=== PATIENT | female | born 1985 | race Caucasian/White ===

== ENCOUNTER → 2019-06-03 16:40 | Outpatient (CLI) | payer OTHER, SELFPAY | PROVIDERS: Visit Provider Specialist | DX: Z34.03 Encounter for supervision of normal first pregnancy, third trimester (principal) | CPT/HCPCS: 87086 ==

== ENCOUNTER → 2019-07-08 08:57 | Outpatient (CLI) | payer OTHER, SELFPAY ==
[2019-07-09 14:48] LABS: Strep Grp B PCR NEG for Grp B Strep
== END ==
PROVIDERS: Visit Provider Specialist
DX: Z34.03 Encounter for supervision of normal first pregnancy, third trimester (principal)
CPT/HCPCS: 87653

== ENCOUNTER 2019-08-05 09:29 | Outpatient (CLI) | payer OTHER, SELFPAY ==
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
== END 2019-08-05 10:35 | disposition home or self-care (01) ==
LOC: LABOR 10:02 → OB 08-06 14:43
PROVIDERS: Referring Provider Specialist; Visit Provider Specialist
DX: O48.0 Post-term pregnancy (principal); O24.410 Gestational diabetes mellitus in pregnancy, diet controlled; Z3A.40 40 weeks gestation of pregnancy
CPT/HCPCS: 59025; G0378; G0379

== ENCOUNTER 2019-08-08 09:20 | Outpatient (CLI) | payer OTHER, SELFPAY ==
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
== END 2019-08-08 10:25 | disposition home or self-care (01) ==
LOC: OB 08-10 14:05
PROVIDERS: Referring Provider Specialist; Visit Provider Specialist
DX: O24.419 Gestational diabetes mellitus in pregnancy, unspecified control (principal); O48.0 Post-term pregnancy; Z3A.40 40 weeks gestation of pregnancy
CPT/HCPCS: 59025; G0378; G0379

== ENCOUNTER → 2019-08-10 16:23 | Outpatient (CLI) | payer OTHER, SELFPAY ==
[2019-08-11 08:51] LABS: COVID19 Sendout Not Detected (Not Detect)
== END ==
PROVIDERS: Visit Provider Physician Assistant
DX: Z11.59 Encounter for screening for other viral diseases (principal)
CPT/HCPCS: 87635

== ENCOUNTER 2019-08-11 18:49 | Inpatient (IN) | payer OTHER, SELFPAY ==
[2019-08-11] MEDS: miSOPROStoL 25 MCG TABLET VAG (19:55)
[2019-08-11 21:51] LABS: Add Manual Diff / Slide Review NO; Basophils Absolute Auto 100 /uL (0-100); Basophils Percent Auto 1.1 % (0-2); Eosinophils Absolute Auto 100 /uL (0-450); Eosinophils Percent Auto 0.7 % (2-4); Hematocrit 34.7 % (36-46); Lymphocytes Absolute Auto 2600 /uL (1100-4500); Lymphocytes Percent Auto 19.2 % (25-40); Mean Corpuscular HGB Conc 34.6 % (30-36); Mean Corpuscular Hemoglobin 31.3 PG (26-34); Mean Corpuscular Volume 90.5 fL (80-100); Monocytes Absolute Auto 800 /uL (0-900); Monocytes Percent Auto 6.3 % (3-14); Neutrophils Absolute Auto 9700 /uL (1500-7000); Neutrophils Percent Auto 72.7 % (50-75); Platelet Count 158 X10^3/uL (150-400); Red Blood Cell Count 3.84 X10^6/uL (4.0-5.2); Red Cell Distribution Width 12.9 % (11.6-14.8); White Blood Cell Count 13.4 X10^3/uL (4.5-11.0)
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
[2019-08-12] MEDS: LACTATED RINGERS 1,000 ML 100 ML IV ×3 (13:26→19:45)
[2019-08-12] MEDS: FENT 2MCG/ML BUPIV 0.125% EPI 200 MCG/100 ML PLAST..BAG 10 MCG EPIDURAL (14:00)
[2019-08-12] MEDS: OXYTOCIN PREMIX 30 UNIT/500 ML PLAST..BAG IV (14:38)
--- NOTE | 2019-08-12 16:44 | PM.PREOP ---
Pre-operative Note COVID-19 COVID-19 status: Negative Result date/Date tested (Pos, Neg/Pending): 08/10/19 Interval Note History & Physical reviewed/Exam performed by Physician: Yes Changes to H&P: Yes H&P completed within 30 days and has changed as indicated here:: 1st stage arrest
[2019-08-12] MEDS: CEFAZOLIN 2 GM/100 ML FROZ.PIGGY IV (17:20)
--- NOTE | 2019-08-12 17:50 | SUR.OPER ---
Supine on Padded OR bed, head on pillow, safety belt at thigh, arms secured on padded arm boards at <90 degrees abduction. Bump under right buttock. Legs uncrossed with pillow under knees, gel pad to heels, tape over blanket to lower legs.
[2019-08-12 18:03] VITALS: BP 104/38; PULSE 88; RESP 13; TEMP 37; O2SAT 97
--- NOTE | 2019-08-12 18:06 | P.OP_ITS ---
Operative Date/Time/Diagnoses Date of procedure: 08/12/19 Time of procedure: 18:06 Pre-op diagnosis: first stage arrest Post-op diagnosis: same Procedure & Clinicians Procedure: Primary low-transverse section Same procedure as scheduled: Yes Indications: 1st stage arrest Surgeon: Cami Lombardo Click Yes if Unassisted: Yes Anesthesia Type: Epidural Operative Notes Findings: Normal tubes, ovaries, and uterus. Viable female with double nuchal cord, 7 lb 6 oz, Apgars of 8 and 9 Closure Type: primary Specimen(s): none sent Applied: catheter (Kim) Estimated Blood Loss (mL): 450 Blood products transfused: none Procedure in detail: The patient was brought to the operating room where she underwent a bolus in her epidural for anesthesia. She was placed in a supine position with a left lateral tilt. A Kim catheter was in place. Pulsatile stockings were placed and functional throughout the case. 2 g of Ancef were given IV prior to the incision. Warming was in place. The patient was prepped and draped in usual sterile fashion. A low transverse incision was made with a scalpel and the incision was carried down to the fascial layer which was incised transversely with scissors. The midline attachments are superiorly and inferiorly. Some bleeding was controlled Bovie. The rectus muscles were in the midline and the peritoneal incision was made with no damage to internal s tructures. The peritoneum was incised and superiorly and inferiorly. Bladder blade was placed and a bladder flap was developed and the bladder held away from the lower uterine segment. An incision was made in the uterus with the scalpel and the incision was extended with stretching. The head was elevated out of the abdomen and with fundal pressure the baby was delivered. The infant was bulb s uctioned for clear fluid and handed off to the warmer. Cord blood was collected. The placenta delivered spontaneously with traction. The uterus was cleaned with clean laps. The uterine incision was closed in 2 layers of 0 chromic suture the first a running locking layer the second an imbricating layer. The bladder peritoneum was repaired with 2-0 Vicryl suture. The gutters were cleaned of any remaining fluids and ovaries and tubes were observed to be normal. Adequate hemostasis was noted. The perineum was closed with 2-0 Vicryl suture. The fascia layer was closed with 0 Vicryl suture with 2 stitches. The incision was irrigated and adequate hemostasis noted. The incision was closed with interrupted 3-0 Vicryl sutures and then a subcuticular stitch of 4-0 Vicryl suture. Steri-Strips were placed. The uterus was massaged to remove any clots. The patient went to recovery room in good condition. Counts of instruments and sponges were correct. Complications: none Post-operative Condition: stable Disposition: other ( Center) Plan for aftercare: Routine post section
[2019-08-12 18:08] VITALS: BP 93/46; PULSE 88; RESP 13; O2SAT 97
[2019-08-12 18:13] VITALS: BP 95/48; PULSE 85; RESP 13; O2SAT 97
[2019-08-12 18:23] VITALS: BP 94/49; PULSE 84; RESP 13; TEMP 37.1; O2SAT 97
--- NOTE | 2019-08-12 18:27 | SUR.PHASEI ---
Has sensation at xyphoid process. Denies pain/nausea. Small amount of red drainage on pad.
--- NOTE | 2019-08-12 18:28 | SUR.OPER ---
FHT 134 LIVE FEMALE BORN AT 1530
[2019-08-12] MEDS: ONDANSETRON 4 MG/2 ML INJ IV (19:45)
[2019-08-12] MEDS: METOCLOPRAMIDE 10 MG/2 ML INJ IV (21:06)
[2019-08-12] MEDS: KETOROLAC 30 MG/ML VIAL IV (22:33)
[2019-08-13] MEDS: KETOROLAC 30 MG/ML VIAL IV ×2 (04:41→09:45)
[2019-08-13 08:11] LABS: Add Manual Diff / Slide Review NO; Basophils Absolute Auto 0 /uL (0-100); Basophils Percent Auto 0.1 % (0-2); Eosinophils Absolute Auto 0 /uL (0-450); Hematocrit 30.1 % (36-46); Hemoglobin 10.3 g/dL (12.0-16.0); Lymphocytes Absolute Auto 2000 /uL (1100-4500); Lymphocytes Percent Auto 11.4 % (25-40); Mean Corpuscular HGB Conc 34.2 % (30-36); Mean Corpuscular Hemoglobin 31.6 PG (26-34); Mean Corpuscular Volume 92.3 fL (80-100); Monocytes Absolute Auto 1100 /uL (0-900); Monocytes Percent Auto 6.2 % (3-14); Neutrophils Absolute Auto 14700 /uL (1500-7000); Neutrophils Percent Auto 82.3 % (50-75); Platelet Count 120 X10^3/uL (150-400); Red Blood Cell Count 3.27 X10^6/uL (4.0-5.2); Red Cell Distribution Width 12.9 % (11.6-14.8); White Blood Cell Count 17.9 X10^3/uL (4.5-11.0)
--- NOTE | 2019-08-13 08:22 | PM.OBPN.1 ---
Subjective - OB Subjective Patient comments: no complaints (Patient had dizziness and nausea after her surgery but it is resolving now) baby status: nursing well [place] feeding status: exclusively breast feeding Date Patient Seen: 08/13/19 Time Patient Seen: 08:22 Interval history: Patient initially had nausea vomiting, dizziness after her surgery but is feeling better now. Breast-feeding is going well. She is ready to try ambulation after breakfast. Exam Vital Signs (past 8 hours): Blood pressure 110/68, pulse 72, temperature 97.6? Oxygen Delivery Method Room Air Narrative Exam Narrative: Patient's abdomen is soft, nontender. Uterus is firm, at U, appropriately tender. Dressing is clean, dry, intact. Mild lochia. Extremities without edema and nontender. Objective Labs Result Diagrams: 08/13/19 06:41 Labs: Laboratory Results - last 24 hr 08/13/19 06:41 WBC 17.9 H RBC 3.27 L Hgb 10.3 L Hct 30.1 L MCV 92.3 MCH 31.6 MCHC 34.2 RDW 12.9 Plt Count 120 L Neut % (Auto) 82.3 H Lymph % (Auto) 11.4 L [place] % (Auto) 6.2 Eos % (Auto) 0.0 L Baso % (Auto) 0.1 Neut # (Auto) 19442 H Lymph # (Auto) 2000 [place] # (Auto) 1100 H Eos # (Auto) 0 Baso # (Auto) 0 Assessment & Plan Assessment and Plan (1) Delivery by section of full-term infant: Status: Acute Plan day: 1 plan OB: routine postop care Comments: Patient will be up and ambulating today. Remove Kim if tolerating ambulation. Time Spent With Patient Time: Total time spent is greater than 50% in coordination of care (as documented) at patient's floor/unit and/or counseling patient: Time with patient: less than 15 minutes
[2019-08-13] MEDS: DOCUSATE 250 MG CAPSULE PO (09:30)
[2019-08-13] MEDS: FERROUS GLUCONATE 324 MG TABLET PO ×2 (09:30→09:32)
[2019-08-13] MEDS: ACETAMINOPHEN 325 MG TABLET 650 MG PO ×2 (13:57→20:05)
[2019-08-13] MEDS: IBUPROFEN 600 MG TABLET PO ×2 (15:44→22:05)
[2019-08-14] MEDS: ACETAMINOPHEN 325 MG TABLET 650 MG PO ×2 (02:12→08:48)
[2019-08-14] MEDS: IBUPROFEN 600 MG TABLET PO (03:57)
[2019-08-14] MEDS: FERROUS GLUCONATE 324 MG TABLET PO (08:47)
[2019-08-14] MEDS: DOCUSATE 250 MG CAPSULE PO (08:48)
--- NOTE | 2019-08-14 09:48 | PM.OBDS.1 ---
Discharge Providers Provider Date of admission: 08/11/19 18:49 Discharge Date: 08/14/19 Consults: 08/11/19 18:51 Consult to Anesthesiology Urgent Comment: Consulting Provider: Anesthesiologist Reason for consultation: Epidural Has provider been notified: No 08/12/19 18:43 Consult to [place] Routine Comment: Discharge provider: Cami Lombardo MD Summary Hospital Course Date Patient Seen: 08/14/19 Time Patient Seen: 09:48 Procedures: Prostin followed by Pitocin induction, epidural catheter, primary low-transverse section Hospital Course: Patient arrived on Labor and delivery for Prostin followed by Pitocin induction for 41 week gestation with diet-controlled gestational diabetes. Patient received an epidural catheter for pain control. She had a 1st stage arrest in underwent a primary low-transverse section. Patient denies headaches, scotomata, epigastric pain. She is urinating and ambulating well. She is passing gas. She is only taking Motrin and Tylenol for pain. She is breast-feeding without difficulty Peripartum Data Delivery Method: Section (For 1st stage arrest) Procedures: Prostin followed by Pitocin induction, epidural catheter, primary low-transverse section complications: none [place] 1: Gender: Female Disposition of : home Discharge Diagnosis (1) Delivery by section of full-term infant: Status: Acute (2) Gestational diabetes: Status: Acute (3) Post-dates : Status: Acute Status at Discharge Cognitive/behavioral status at discharge: oriented Functional status at discharge: independent ambulation Overall status at discharge: patient is progressing back to baseline Time Spent with Patient Time attestation: Total time spent providing and/or coordinating discharge services: Time spent: Less than 30 minutes Objective Labs Result Diagrams: 08/13/19 06:41 Exam Vital Signs (past 8 hours): Blood pressure 101/71, pulse of 58, temperature 98.3? Oxygen Delivery Method Room Air Narrative Exam Narrative: Abdomen is soft, nontender. Uterus is firm, at U with appropriate tenderness. The dressing is clean, dry, intact. Mild lochia. Extremities without edema and nontender. Blood type A positive, rubella immune, she received Tdap in 3rd trimester Discharge Plan Discharge Plan Patient Disposition: Home Discharge orders & Medications Prescriptions: Continued prenat.vits,markie,zed-srxl-dpaej Tablet 1 tab PO DAILY RF: 0 No Action (DME) Double Electric breast Pump and Supplies See Rx Instructions .ROUTE .MEDSUPPLY Qty: 1 RF: 0 Follow up/Referrals: Cami Lombardo MD [Physician] - 1 Week (Aquacel removal) Diet/Activity/Treatments Diet: Regular Activity: Nothing in vagina and no lifting over 20 lb for 6 weeks Skin/Wound/Dressing Care Report to your healthcare provider any signs of infection, such as:: chills, fever, increased pain and unusual redness Dressing: Leave dressing on for one-week
== END 2019-08-14 11:20 | disposition home or self-care (01) | DRG 788 ==
PROVIDERS: Admitting Provider Specialist; Referring Provider Specialist; Visit Provider Specialist
PROC: 10D00Z1 Extraction of Products of Conception, Low, Open Approach (ICD-10-PCS; CPT 59514; principal; 2019-08-12 17:00)
DX: O48.0 Post-term pregnancy (principal); O24.420 Gestational diabetes mellitus in childbirth, diet controlled; O62.1 Secondary uterine inertia; Z3A.41 41 weeks gestation of pregnancy; Z37.0 Single live birth; O69.81X0 Labor and delivery complicated by cord around neck, without compression, not applicable or unspecified
CPT/HCPCS: 01967; 01968; 36415; 59050; 59515; 85025; 86850; 86900; 86901; G0379; J0690; J1885; J2274; J2405; J2590; J2765; J3010

== ENCOUNTER → 2020-12-19 12:23 | Outpatient (CLI) | payer OTHER, SELFPAY ==
[2020-12-19 13:36] LABS: Add Manual Diff / Slide Review NO; Basophils Absolute Auto 0 /uL (0-100); Basophils Percent Auto 0.6 % (0-2); Eosinophils Absolute Auto 100 /uL (0-450); Hematocrit 36.6 % (36-46); Hemoglobin 12.3 g/dL (12.0-16.0); Lymphocytes Absolute Auto 2400 /uL (1100-4500); Lymphocytes Percent Auto 32.7 % (25-40); Mean Corpuscular HGB Conc 33.6 % (30-36); Mean Corpuscular Hemoglobin 30.3 PG (26-34); Mean Corpuscular Volume 90.1 fL (80-100); Monocytes Absolute Auto 500 /uL (0-900); Monocytes Percent Auto 6.8 % (3-14); Neutrophils Absolute Auto 4300 /uL (1500-7000); Neutrophils Percent Auto 58.9 % (50-75); Platelet Count 270 X10^3/uL (150-400); Red Blood Cell Count 4.07 X10^6/uL (4.0-5.2); Red Cell Distribution Width 12.7 % (11.6-14.8); White Blood Cell Count 7.2 X10^3/uL (4.5-11.0)
[2020-12-19 13:52] LABS: Hemoglobin A1C% w Est Avg Glu 5.1 % (4.0-6.0)
[2020-12-19 14:14] LABS: Prolactin 16.4 ng/mL (3.0-18.6)
[2020-12-19 14:36] LABS: Alanine Aminotransferase 12 IU/L (<35); Albumin 4.6 g/dL (3.5-5.0); Albumin Globulin Ratio 1.6 (1.0-2.8); Alkaline Phosphatase 72 U/L (38-126); Aspartate Aminotransferase 22 IU/L (14-36); BUN Creatinine Ratio 15.4 (6-22); Bilirubin Total 0.3 mg/dL (0.2-1.3); Blood Urea Nitrogen 10 mg/dL (7-17); Calcium 9.5 mg/dL (8.4-10.2); Carbon Dioxide 28 mmol/L (22-32); Chloride 103 mmol/L (98-107); Estimated Glomerular Filt Rate > 60.0 mL/min (>60); Globulin 2.9 g/dL (1.7-4.1); Glucose 76 mg/dL (70-100); HEMOLYSIS < 15 (0-50); Potassium 4.1 mmol/L (3.4-5.1); Sodium 140 mmol/L (137-145); Total Protein 7.5 g/dL (6.3-8.2)
[2020-12-24 15:11] LABS: Percent Free Testosterone 1.81 % (0.50-2.80); Testosterone Free 0.48 ng/dL (0.10-0.85); Testosterone Total 26.5 ng/dL (10.0-55.0)
== END ==
PROVIDERS: Family Medicine; PCP Family Medicine; Referring Provider Family Medicine; Visit Provider Family Medicine
DX: O24.419 Gestational diabetes mellitus in pregnancy, unspecified control (principal); O92.70 Unspecified disorders of lactation; R42 Dizziness and giddiness; L70.9 Acne, unspecified
CPT/HCPCS: 36415; 80053; 83036; 84146; 84402; 84403; 84443; 85025

== ENCOUNTER → 2022-08-02 13:59 | Outpatient (CLI) | payer OTHER, SELFPAY ==
[2022-08-03 08:44] LABS: Complement C3 113 mg/dL (82-167)
[2022-08-05 20:30] LABS: Complement Total CH50 57 U/mL (>41)
== END ==
PROVIDERS: PCP Family Medicine; Referring Provider Family Medicine; Visit Provider Family Medicine
DX: R68.89 Other general symptoms and signs (principal)
CPT/HCPCS: 36415; 86160; 86162

== ENCOUNTER → 2022-09-05 11:03 | Outpatient (CLI) | payer OTHER, SELFPAY ==
--- NOTE | 2022-09-05 11:05 | DI.US.S_ITS ---
PROCEDURE: US OB <= 14 WEEKS FETUS INDICATIONS: Dating and viability OUTSIDE/PRIOR DATING DATA: Last menstrual period (LMP): 06/06/2022. LMP-based estimated date of delivery (TAJ): 03/13/2023. First dating scan (date and location): 09/05/2022 at . Estimated date of delivery (TAJ) from first dating scan: 03/08/2023. TECHNIQUE: Real-time scanning was performed of the fetus, with image documentation and biometric measurements. COMPARISON: None. FINDINGS: General: A single living intrauterine gestation is present. Presentation: Transverse. Placenta: Placental position is anterior, with inferior edge of placenta to the internal os. Amniotic fluid index: n.a. heart rate: 158 beats per minute. Maternal cervical canal: Closed measuring 4.8 cm long. Normal lower limit is 2.5 cm. The estimated gestational age is 13 weeks 5 days. Ultrasound TAJ 03/08/2023. Ovaries are grossly normal. IMPRESSION: 1. A single living intrauterine gestation with an estimated gestational age of 13 weeks 5 days corresponding to ultrasound TAJ 03/08/2023. 2. Low-lying placenta. We strive to produce accurate, complete, and clear reports of imaging services. To assist us in improving patient care, this report was composed using standard report templates and voice recognition software. Therefore, it may contain abnormal punctuation, insertions and/or omissions. Occasional wrong-word or sound-alike substitutions may occur. Though we review the report and make efforts to correct it, we do recommend that the report be read carefully in proper context to recognize any text inaccuracies. Dictated by: Arianna Ivan M.D. on 09/05/2022 at 15:38 Approved by: Arianna Ivan M.D. on 09/05/2022 at 15:53
== END ==
PROVIDERS: PCP Family Medicine; Referring Provider Specialist; Visit Provider Specialist
DX: Z36.87 Encounter for antenatal screening for uncertain dates (principal); O44.41 Low lying placenta NOS or without hemorrhage, first trimester; Z3A.13 13 weeks gestation of pregnancy
CPT/HCPCS: 76801

== ENCOUNTER → 2022-09-12 12:08 | Outpatient (CLI) | payer OTHER, SELFPAY ==
[2022-09-12 12:29] LABS: Specimen Label Y
[2022-09-13 12:31] LABS: RPR Screen Non Reactive (Non Reactive); Varicella IgG Antibody 467 index (Immune >165)
[2022-09-14 11:42] LABS: Add Manual Diff / Slide Review NO; Basophils Absolute Auto 100 /uL (0-100); Basophils Percent Auto 0.7 % (0-2); Eosinophils Absolute Auto 300 /uL (0-450); Eosinophils Percent Auto 2.3 % (2-4); Hematocrit 33.9 % (36-46); Hemoglobin 11.5 g/dL (12.0-16.0); Lymphocytes Absolute Auto 2300 /uL (1100-4500); Lymphocytes Percent Auto 19.7 % (25-40); Mean Corpuscular HGB Conc 33.9 % (30-36); Mean Corpuscular Volume 88.5 fL (80-100); Monocytes Absolute Auto 700 /uL (0-900); Monocytes Percent Auto 5.7 % (3-14); Neutrophils Absolute Auto 8200 /uL (1500-7000); Neutrophils Percent Auto 71.6 % (50-75); Platelet Count 238 X10^3/uL (150-400); Red Blood Cell Count 3.83 X10^6/uL (4.0-5.2); Red Cell Distribution Width 12.6 % (11.6-14.8); White Blood Cell Count 11.5 X10^3/uL (4.5-11.0)
[2022-09-14 17:28] LABS: Hepatitis B Surface Antigen NEGATIVE s/c (NEGATIVE); Rubella Antibody IgG 5.2 IU/mL (>15)
[2022-09-14 17:46] LABS: HIV 1 & 2 Ab/Ag 4th Gen Combo NEGATIVE (NEGATIVE); Hep C Virus Ab w/Reflex Quant NEGATIVE s/c (NEGATIVE)
== END ==
PROVIDERS: PCP Family Medicine; Referring Provider Specialist; Visit Provider Specialist
DX: Z34.82 Encounter for supervision of other normal pregnancy, second trimester (principal)
CPT/HCPCS: 36415; 80055; 86787; 86803; 86850; 86900; 86901; 87086; 87389

== ENCOUNTER → 2022-10-12 10:17 | Outpatient (CLI) | payer OTHER, SELFPAY ==
[2022-10-15 16:53] LABS: AFP Value 55.3 ng/mL (.); Insulin Dep Diabetes No (.); OSBR Risk 1IN 10000 (.); Results Report (.); Test Results *Screen Negative* (.)
== END ==
PROVIDERS: PCP Family Medicine; Referring Provider Specialist; Visit Provider Specialist
DX: Z34.82 Encounter for supervision of other normal pregnancy, second trimester (principal); Z3A.18 18 weeks gestation of pregnancy
CPT/HCPCS: 36415; 82105

== ENCOUNTER → 2022-12-05 10:24 | Outpatient (CLI) | payer OTHER, SELFPAY ==
--- NOTE | 2022-12-05 10:25 | DI.US.S_ITS ---
PROCEDURE: OB >= 14 WEEKS FETUS INDICATIONS: ANATOMY OUTSIDE/PRIOR DATING DATA: Last menstrual period (LMP): 06/06/2022. LMP-based estimated date of delivery (TAJ): 03/13/2023. Working TAJ First dating scan (date and location): 09/05/2022. Estimated date of delivery (TAJ) from first dating scan: 03/08/2023. TECHNIQUE: Real-time scanning was performed of the fetus, with image documentation and biometric measurements. COMPARISON: [facility], , OB >= 14 WEEKS FETUS, 08/10/2019, 15:23. [facility], , OB <= 14 WEEKS FETUS, 09/05/2022, 11:25. FINDINGS: General: A single living intrauterine gestation is present. Presentation: Vertex. Placenta: Placental position is anterior , without previa. Amniotic fluid index: 20.5 cm, normal range is 5-24 cm. Single deepest vertical pocket is 6 cm. heart rate: 150 beats per minute. Maternal cervical canal: 4.7 cm long. Normal lower limit is 2.5 cm. biometrics: Biparietal diameter: 6.5 cm, 26 weeks and 1 day Head circumference: 24.1 cm, 26 weeks and 2 days Abdominal circumference: 22.7 cm, 27 weeks Femur length: 4.8 cm, 26 weeks and 1 day Clinically estimated gestational age: 26 weeks Composite gestational age from present scan: 26 weeks and 3 days Estimated weight and percentile: 956 g, 64th percentile Anatomic survey: Neuro: Ventricles are non-dilated at less than 10 mm. Cisterna magna is normal at 3-11 mm. Cerebellum is normal in size and morphology. Nuchal skin fold: Not evaluated Face: Nose and lips, facial profile are normal. Spine: No evidence for spina bifida. Heart: 4-chambered heart is present, with normal ventricular outflow tracts. Diaphragm: Diaphragm is intact. Stomach: Left-sided stomach is present. Kidneys: No hydronephrosis. Normal is less than 5 mm in 2nd trimester, less than 7 mm in 3rd trimester. Cord: 3-vessel cord has orthotopic insertion. Bladder: Normal in size. Extremities: All 4 extremities identified. IMPRESSION: Living intrauterine gestation at 26 weeks. biometry is concordant, at the 64th percentile for EFW. Routine anatomic survey without significant abnormality. Dictated by: Miko Arreola M.D. on 12/05/2022 at 13:25 Approved by: Miko Arreola M.D. on 12/05/2022 at 13:29
== END ==
PROVIDERS: PCP Family Medicine; Referring Provider Specialist; Visit Provider Specialist
DX: Z34.82 Encounter for supervision of other normal pregnancy, second trimester (principal); Z3A.20 20 weeks gestation of pregnancy
CPT/HCPCS: 76811

== ENCOUNTER → 2022-12-10 10:27 | Outpatient (CLI) | payer OTHER, SELFPAY ==
[2022-12-10 11:03] LABS: Hematocrit 32.8 % (36-46); Hemoglobin 11.5 g/dL (12.0-16.0)
== END ==
PROVIDERS: PCP Family Medicine; Referring Provider Student in an Organized Health Care Education/Training Program; Visit Provider Student in an Organized Health Care Education/Training Program
DX: Z3A.26 26 weeks gestation of pregnancy (principal); Z34.82 Encounter for supervision of other normal pregnancy, second trimester
CPT/HCPCS: 36415; 85014; 85018

== ENCOUNTER → 2023-02-15 14:25 | Outpatient (CLI) | payer OTHER, SELFPAY ==
[2023-02-16 17:32] LABS: Strep Grp B PCR NEG for Grp B Strep
== END ==
PROVIDERS: PCP Family Medicine; Visit Provider Student in an Organized Health Care Education/Training Program
DX: Z3A.36 36 weeks gestation of pregnancy (principal); Z34.83 Encounter for supervision of other normal pregnancy, third trimester
CPT/HCPCS: 87653

== ENCOUNTER 2023-03-07 06:01 | Inpatient (IN) | payer OTHER, SELFPAY ==
[2023-03-07] VITALS (7 sets, daily range): BP systolic 98–125; BP diastolic 53–89; PULSE 63–86; RESP 14–18; TEMP 36.2–36.6; O2SAT 92–97
[2023-03-07] MEDS: LACTATED RINGERS 1,000 ML 999 ML IV ×2 (07:10→11:27)
--- NOTE | 2023-03-07 07:19 | SUR.OPER ---
Supine on padded OR bed, head on pillow, arms secured on padded arm boards at <90 degrees abduction, legs uncrossed, safety belt at thigh, tape over blanket over lower legs.
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
[2023-03-07 07:42] LABS: Add Manual Diff / Slide Review NO; Basophils Absolute Auto 0 /uL (0-100); Basophils Percent Auto 0.3 % (0-2); Eosinophils Absolute Auto 100 /uL (0-450); Eosinophils Percent Auto 0.9 % (2-4); Hematocrit 36.8 % (36-46); Hemoglobin 12.8 g/dL (12.0-16.0); Lymphocytes Absolute Auto 2300 /uL (1100-4500); Lymphocytes Percent Auto 22.2 % (25-40); Mean Corpuscular HGB Conc 34.7 % (30-36); Mean Corpuscular Hemoglobin 31.9 PG (26-34); Mean Corpuscular Volume 91.9 fL (80-100); Monocytes Absolute Auto 900 /uL (0-900); Monocytes Percent Auto 8.4 % (3-14); Neutrophils Absolute Auto 7200 /uL (1500-7000); Neutrophils Percent Auto 68.2 % (50-75); Platelet Count 150 X10^3/uL (150-400); Red Cell Distribution Width 12.6 % (11.6-14.8); White Blood Cell Count 10.6 X10^3/uL (4.5-11.0)
[2023-03-07] MEDS: CEFAZOLIN 2 GM/100 ML PREMIX 100 ML IV (07:45)
[2023-03-07] MEDS: CITRIC ACID/SODIUM CITRATE 15 ML SOLUTION 30 ML PO (07:46)
--- NOTE | 2023-03-07 11:46 | P.OP_ITS ---
Operative Date/Time/Diagnoses Date of procedure: 03/07/23 Time of procedure: 10:30 Pre-op diagnosis: 1. [place]arez intrauterine gestation at 39+2 weeks 2. History of delivery Post-op diagnosis: same Procedure & Clinicians Procedure: Repeat low transverse section Same procedure as scheduled: Yes Indications: 37yo at 39+2wks admitted for planned repeat . course complicated by advanced maternal age and history of gestational diabetes in prior . Surgeon: Nora Vanegas Click Yes if Unassisted: No Customer Account Manager: Sandi Blake Reason for Customer Account Manager: Customer Account Manager was necessary for timely, efficient, and safe completion of the procedure. Anesthesia Type: Spinal Operative Notes Findings: Normal-appearing uterus and bilateral fallopian tubes and ovaries. Clear fluid noted with AROM. Delivery productive of a viable female infant in cephalic presentation with APGARs 9/9 and weighing 3081g. Intraoperative meds administered: Duramorph and Ketorolac Applied: Catheter Estimated Blood Loss (mL): 800 Blood products transfused: none Procedure in detail: The risks, benefits, indications and alternatives of the procedure were reviewed with the patient and informed consent was obtained. The patient was taken to the operating room where spinal anesthesia was obtained without difficulty and was found to be adequate. Sequential compression devices were placed bilaterally for VTE prophylaxis. She was then prepped and draped in the normal, sterile fashion in the dorsal supine position with a leftward tilt. She received 2g Ancef for surgical prophylaxis. A Pfannenstiel skin incision was then made with the scalpel and carried through to the underlying layer of fascia. The fascia was incised in the midline and the incision extended laterally with the Donis scissors. The superior aspect of the incision was grasped, tented up with Bethany clamps and the rectus muscles were dissected off bluntly, aided with Donis scissors. The rectus muscles were then at the midline. The peritoneum was identified, and entered digitally. The peritoneal incision was then extended horizontally, superiorly and inferiorly, with good visualization of the bladder. The Franklin retractor was then inserted. The lower uterine segment was incised in a transverse fashion with the scalpel. The uterine incision was then extended manually in a cephalad/caudad direction. The amniotic sac was artificially ruptured, productive of clear fluid. The ?s head delivered atraumatically through the hysterotomy without difficulty, followed by the body.? The cord was doubly clamped and cut after a 60sec delay with the infant handed off to the waiting pediatrics team. The placenta was then removed spontaneously with gentle traction on the umbilical cord. The uterus was then left in-situ and cleared of all clots and debris. The uterine incision was repaired with 0-vicryl in a running, locked fashion. A figure of eight suture of 0-monocryl was placed at the center of the hysterotomy with excellent hemostasis achieved. The paracolic gutters were cleared of all clot and debris. The Franklin retractor was then removed. The fascia was reapproximated with 0-vicryl in a running fashion. The subcutaneous layer was closed with 3-0 vicryl in simple, interrupted sutures. The skin was closed with 4-0 monocryl in a subcuticular fashion. The incision was then dressed with steri-strips and a pressure dressing was applied. At the completion of the case, a Crede maneuver was performed with good uterine tone and minimal vaginal bleeding noted.? The patient tolerated the procedure well. Sponge, lap and needle counts were correct x3. The patient was taken to the recovery room in stable condition. Complications: none Post-operative Condition: stable Disposition: PACU Aftercare: routine postop
[2023-03-07] MEDS: ONDANSETRON 4 MG/2 ML INJ IV ×2 (11:57→17:36)
[2023-03-07] MEDS: ONDANSETRON 4 MG/2 ML INJ (13:05)
[2023-03-07] MEDS: METOCLOPRAMIDE 10 MG/2 ML INJ IV (15:08)
[2023-03-07] MEDS: KETOROLAC 30 MG/ML VIAL IV ×2 (17:29→23:32)
[2023-03-07] MEDS: ACETAMINOPHEN 325 MG TABLET 650 MG PO ×2 (17:29→23:32)
[2023-03-07] MEDS: SCOPOLAMINE 1 PATCH TOP (20:04)
[2023-03-08] MEDS: ACETAMINOPHEN 325 MG TABLET 650 MG PO ×2 (06:46→13:32)
[2023-03-08] MEDS: KETOROLAC 30 MG/ML VIAL IV (06:46)
--- NOTE | 2023-03-08 08:24 | P.DS_ITS ---
Discharge Providers Provider Date of admission: 03/07/23 06:01 Discharge Date: 03/08/23 Primary care physician: Daniel Glaser MD Consults: 03/07/23 12:36 Consult to [employer] [facility] Routine Comment: Discharge provider: Sandi Blake MD Summary Hospital Course Date Patient Seen: 03/08/23 Time Patient Seen: 07:55 Diagnoses: Repeat delivery Hospital Course: 37 yo at 39w2d admitted for planned repeat delivery. Uncomplicated delivery. Some nausea following anesthesia. Patient received zofran, reglan and scopolamine patch. Relief finally after placement of scopolamine patch. Patient is feeling well on morning of discharge. Voiding well. Passing flatus. Ambulating without problem. She is . Pain is controlled on ibuprofen/tylenol only. Peripartum Data Delivery Method: Section Discharge Diagnosis (1) Advanced maternal age (AMA) in : Status: Acute (2) Uterine scar from previous delivery affecting : Status: Acute (3) S/P repeat low transverse : Status: Acute Status at Discharge Cognitive/behavioral status at discharge: at baseline, oriented Functional status at discharge: independent ambulation Overall status at discharge: patient is back to baseline Time Spent with Patient Time attestation: Total time spent providing and/or coordinating discharge services: Time spent: Greater than 30 minutes Objective Labs 03/07/23 06:25 Exam Vital Signs (past 8 hours): Oxygen Delivery Method Room Air Narrative Exam Narrative: Breathing easily, NAD. Discharge Plan Discharge Plan Patient Disposition: Home Provider Discharge Comment: You may take ibuprofen 600mg every 6hrs and tylenol 650mg every 6hrs for pain. Please call if you have uncontrolled pain with the above medications. Avoid lifting >20lbs for 6 weeks. Nothing in the vagina for 6 weeks. Discharge orders & Medications Prescriptions: Continued OB Complete 50 mg iron- 1.25 mg tablet 1 tab PO DAILY Qty: 90 1RF (DME) lancets Misc See Rx Instructions .ROUTE .MEDSUPPLY Qty: 120 3RF Rx Instructions: Testing blood sugars fasting and 2 hr PP (DME) Blood Glucose Test Strip See Rx Instructions .ROUTE .MEDSUPPLY Qty: 120 3RF Rx Instructions: Testing blood sugars 4x daily Fasting and 2 hrs after each meal (DME) blood-glucose meter [Blood Glucose Monitoring] Kit See Rx Instructions .ROUTE .MEDSUPPLY Qty: 1 0RF Rx Instructions: Testing blood sugars 4x daily fasting and 2 hrs after each meal Follow up/Referrals: Daniel Glaser MD [Primary Care Provider] - Nora Vanegas DO [Physician] - ( 2 week appointment on at 10:00 am, a 6 week appontment on April 11, 2023 at 9:00 am.) Diet/Activity/Treatments Diet: Diet as Tolerated Activity: As tolerated. Skin/Wound/Dressing Care Skin care: You may shower normally. Report to your healthcare provider any signs of infection, such as:: chills, fever, increased pain, unusual drainage and unusual redness Dressing: Remove the steri-strips from your incision after 1 week. Visit Report/Discharge Packet Instructions: DI for Stand Alone Forms: Patient Portal/API, Stroke Signs & Symptoms Discharge Data Primary Care Provider: Daniel Glaser
[2023-03-08] MEDS: DOCUSATE 100 MG CAPSULE PO (09:07)
[2023-03-08] MEDS: PRENATAL VIT,CALC/IRON/FOLIC 1 TABLET 1 TAB PO (09:07)
[2023-03-08] MEDS: IBUPROFEN 600 MG TABLET PO (13:31)
== END 2023-03-08 13:50 | disposition home or self-care (01) | DRG 788 ==
PROVIDERS: Admitting Provider Student in an Organized Health Care Education/Training Program; PCP Family Medicine; Referring Provider Student in an Organized Health Care Education/Training Program; Visit Provider Student in an Organized Health Care Education/Training Program
PROC: 10D00Z1 Extraction of Products of Conception, Low, Open Approach (ICD-10-PCS; CPT 59514; principal; 2023-03-07 07:45)
DX: O34.211 Maternal care for low transverse scar from previous cesarean delivery (principal); O24.429 Gestational diabetes mellitus in childbirth, unspecified control; Z3A.39 39 weeks gestation of pregnancy; Z37.0 Single live birth
CPT/HCPCS: 36415; 59050; 59510; 59514; 85025; 86850; 86900; 86901; J0690; J1885; J2274; J2405; J2590; J2765

== ENCOUNTER → 2023-03-21 10:42 | Outpatient (CLI) | payer OTHER, SELFPAY | PROVIDERS: PCP Family Medicine; Visit Provider Student in an Organized Health Care Education/Training Program | DX: R30.9 Painful micturition, unspecified (principal) | CPT/HCPCS: 87077; 87086; 87186 ==

== ENCOUNTER → 2023-04-11 09:17 | Outpatient (CLI) | payer OTHER, SELFPAY | PROVIDERS: PCP Family Medicine; Visit Provider Student in an Organized Health Care Education/Training Program | DX: R35.0 Frequency of micturition (principal) | CPT/HCPCS: 87086 ==